=== PATIENT | female | born 1955 | race Caucasian/White ===

== ENCOUNTER 2018-11-03 09:59 | Outpatient (CLI) | payer BC ==
--- NOTE | 2018-11-30 11:45 | MMO ---
BILATERAL SCREENING MAMMOGRAM: Date: 11/03/18 INDICATION: Baseline screening evaluation. COMPARISON: None available. The patient's previous examinations from [facility] were unavailable to review to th e current screening evaluation. This will serve as the patient's baseline examination at [facility]. FINDINGS: Interpretation of this exam was assisted with computer-aided detection. There are scattered fibroglandular elements bilaterally. No suspicious mass, cluster of microcalcifications, or area of architectural distortion is evident. IMPRESSION: BIRADS 1: Negative Recommend routine annual mammographic screening. POS: [facility]
== END 2018-11-03 10:00 | disposition home or self-care (01) ==
LOC: SCSMAMMO 09:59
PROVIDERS: ATTEND Family Medicine
DX: Z12.31 Encounter for screening mammogram for malignant neoplasm of breast (principal)
CPT/HCPCS: 77067

== ENCOUNTER 2020-03-01 08:38 | Outpatient (CLI) | payer MEDICARE, OTHER ==
--- NOTE | 2020-03-01 09:29 | MMO ---
Bilateral MAMMO Bilat Screen [facility]. CLINICAL HISTORY: Patient is 64 years old and is seen for screening. The patient has no family history of breast cancer. The patient has no personal history of cancer. VIEWS: The views performed were: bilateral craniocaudal with tomosynthesis and bilateral mediolateral oblique with tomosynthesis. FILMS COMPARED: The present examination has been compared to a prior imaging study performed at [facility] on 11/03/2018. This study has been interpreted with the assistance of computer-aided detection. MAMMOGRAM FINDINGS: There are scattered fibroglandular densities. There are no suspicious masses, suspicious calcifications, or new areas of architectural distortion. IMPRESSION: THERE IS NO MAMMOGRAPHIC EVIDENCE OF MALIGNANCY. A ROUTINE FOLLOW-UP MAMMOGRAM IN 1 YEAR IS RECOMMENDED. THE RESULTS OF THIS EXAM WERE SENT TO THE PATIENT. ACR BI-RADS Category 1 - Negative MAMMOGRAPHY NOTE: 1. A negative mammogram report should not delay a biopsy if a dominant of clinically suspicious mass is present. 2. Approximately 10% to 15% of breast cancers are not detected by mammography. 3. Adenosis and dense breasts may obscure an underlying neoplasm. Reported by: SUSY HORAN MD Electonically Signed: [id number]
--- NOTE | 2020-03-01 13:11 | BD ---
BONE DENSITOMETRY USING DEXA: HISTORY: A 64-year-old female with screening for postmenopausal osteoporosis. FINDINGS: Lumbar Spine: BMD (g/cm2) L1 0.782 T-Score: -1.9 Z-Score: -0.3 L2 0.870 T-Score: -1.4 Z-Score: 0.3 L3 0.993 T-Score: -0.8 Z-Score: 1.0 L4 0.857 T-Score: -1.9 Z-Score: 0.1 L1-L4 0.879 T-Score: -1.5 Z-Score: 0.2 Femoral Neck: 0.662 T-Score: -1.7 Z-Score: -0.2 Total Femur: 0.837 T-Score: -0.9 Z-Score: 0.4 The 10-year fracture risk for a major osteoporotic fracture is 17% and for a hip fracture is 1.2%. Impression: Osteopenia. POS: [facility]
== END 2020-03-01 08:39 | disposition home or self-care (01) ==
LOC: BICMAMMO 08:38
PROVIDERS: ATTEND Family Medicine
DX: Z12.31 Encounter for screening mammogram for malignant neoplasm of breast (principal); Z13.820 Encounter for screening for osteoporosis; Z78.0 Asymptomatic menopausal state; M85.89 Other specified disorders of bone density and structure, multiple sites
CPT/HCPCS: 77063; 77067; 77080

== ENCOUNTER 2021-03-06 09:08 | Outpatient (CLI) | payer MEDICARE | END 2021-03-06 09:09 | disposition home or self-care (01) | LOC: BICMAMMO 09:08 | PROVIDERS: ATTEND Family Medicine | DX: Z12.31 Encounter for screening mammogram for malignant neoplasm of breast (principal) | CPT/HCPCS: 77063; 77067 ==

== ENCOUNTER 2022-03-07 09:55 | Outpatient (CLI) | payer MEDICARE | END 2022-03-07 09:56 | disposition home or self-care (01) | LOC: BICMAMMO 09:55 | PROVIDERS: ATTEND Family Medicine | DX: Z12.31 Encounter for screening mammogram for malignant neoplasm of breast (principal) | CPT/HCPCS: 77063; 77067 ==

== ENCOUNTER 2023-03-27 14:45 | Outpatient (CLI) | payer MEDICARE, OTHER | END 2023-03-27 14:46 | disposition home or self-care (01) | LOC: BICMAMMO 14:45 | PROVIDERS: ATTEND Family Medicine | DX: Z12.31 Encounter for screening mammogram for malignant neoplasm of breast (principal) | CPT/HCPCS: 77063; 77067 ==

== ENCOUNTER 2024-03-31 08:38 | Outpatient (CLI) | payer MEDICARE, OTHER | END 2024-03-31 08:39 | disposition home or self-care (01) | LOC: BICMAMMO 08:38 | PROVIDERS: ATTEND Family Medicine | DX: Z12.31 Encounter for screening mammogram for malignant neoplasm of breast (principal); M85.89 Other specified disorders of bone density and structure, multiple sites | CPT/HCPCS: 77063; 77067; 77080 ==